=== PATIENT | male | born 1960 | race African-American/Black ===

== ENCOUNTER 2018-06-13 22:45 | Emergency (ER) | payer OTHER, MEDICARE ==
[2018-06-13] MEDS: KETOROLAC 60 MG/2 ML INJ. IM (23:57)
[2018-06-13] MEDS: ORPHENADRINE CITRATE 60 MG/2 ML VIAL. IM (23:58)
[2018-06-14] MEDS: PROMETHAZINE IM 25 MG/ML VIAL IM (01:03)
[2018-06-14] MEDS: oxyCODONE/APAP 7.5/325 1 TAB TABLET PO (02:16)
[2018-06-14 03:09] LABS: BILIRUBIN,URINE NEGATIVE (NEG); CLARITY,URINE CLEAR; COLOR,URINE YELLOW; GLUCOSE,URINE 500 mg/dL (NEG); NITRITE,URINE NEGATIVE (NEG); PH,URINE 5.5; PROTEIN,URINE 30 mg/dL (NEG-TRACE); UROBILINOGEN,URINE 0.2 mg/dL (0.2 mg/dL)
[2018-06-14 03:24] LABS: BACTERIA,URINE FEW /HPF (0-FEW); RBC,URINE TNTC /HPF (0-2); SQUAMOUS EPITHELIAL CELL,UR FEW /LPF
== END 2018-06-14 04:08 | disposition home or self-care (01) ==
LOC: ER 22:45
DX: N20.1 Calculus of ureter (principal); Z93.3 Colostomy status; Z90.5 Acquired absence of kidney
CPT/HCPCS: 74176; 81001; 96372; 99285-25; J1885; J2360; J2550

== ENCOUNTER 2018-08-20 03:12 | Inpatient (IN) | payer OTHER ==
[~2018-08-20] VITALS: Ht 180.3 cm; Wt 80.7 kg
[~2018-08-20 03:12] MED LIST: ONDA4TAB7 PO; OXYC-323 PO; TAMS0.4C97 PO
--- NOTE | 2018-08-20 03:55 | PHYS DOC ---
Past Medical History Past Medical History: No Pertinent History Past Surgical History: Other Additional Past Surgical Histo: COLOSTOMY, KIDNEY REMOVAL Alcohol Use: None Drug Use: None Adult General Chief Complaint Chief Complaint: NAUSEA/VOMITING/DIARRHA HPI HPI Patient is a 58 year old male who presents with nausea and vomiting. Patient states he had onset of nausea with vomiting 2 days earlier. He is uncertain why. He relates that he has been unable to hold down any food or fluids over the last 24 hours. He does not have abdominal pain. The patient does not drink alcohol. He does state he had one prior episode of similar symptoms a couple months earlier for which she was evaluated but no acute diagnosis was made at that time. Denies diarrhea. He currently complains only of nausea and excessive thirst. Review of Systems Review of Systems Constitutional: Denies fever or chills Eyes: Denies HENT: Denies Respiratory: Denies cough Cardiovascular: No additional information GI: Denies abdominal pain : Denies dysuria Musculoskeletal: Denies back pain Integument: Denies rash or skin lesions Neurologic: Denies headache Endocrine: Denies polyuria or polydipsia All other systems were reviewed and found to be within normal limits, except as documented in this note. Current Medications Current Medications Current Medications Medications (Trade) Dose Ordered Sig/Lokesh Start Time Stop Time Status Last Admin Dose Admin Diphenhydramine HCl (Benadryl) 12.5 mg 1X ONCE 08/20/18 04:30 08/20/18 04:31 DC 08/20/18 04:19 12.5 MG Prochlorperazine Edisylate (Compazine) 10 mg 1X ONCE 08/20/18 04:30 08/20/18 04:31 DC 08/20/18 04:18 10 MG Sodium Chloride 1,000 ml @ 1,000 mls/hr 1X ONCE 08/20/18 06:30 08/20/18 07:29 DC 08/20/18 06:08 1,000 MLS/HR Allergies Allergies Allergies Coded Allergies Type Severity Reaction Last Updated Verified No Known Drug Allergies 06/13/18 No Physical Exam Physical Exam Constitutional: Well developed, well nourished, no acute distress, non-toxic appearance HENT: Normocephalic, atraumatic, bilateral external ears normal, oropharynx dry Eyes: PERRLA, EOMI, conjunctiva normal Neck: Normal range of motion, no tenderness Cardiovascular:Heart rate regular rhythm, no murmur Lungs & Thorax: Bilateral breath sounds clear to auscultation Abdomen: Bowel sounds normal, soft, no tenderness, well-appearing colostomy left lower quad. Skin: Warm, dry, no erythema Extremities: No edema Neurologic: Alert and oriented X 3 Psychologic: Affect normal Current Patient Data Vital Signs Vital Signs Date Time Temp Pulse Resp B/P (MAP) Pulse Ox O2 Delivery O2 Flow Rate FiO2 08/20/18 06:18 82 132/62 (85) Room Air 08/20/18 05:18 99 08/20/18 03:40 98.2 18 98.2 Lab Values Laboratory Tests Test 08/20/18 04:40 08/20/18 07:14 White Blood Count 9.6 x10^3/uL (4.0-11.0) Red Blood Count 4.50 x10^6/uL (4.30-5.70) Hemoglobin 13.5 g/dL (13.0-17.5) Hematocrit 39.8 % (39.0-53.0) Mean Corpuscular Volume 89 fL (79-100) Mean Corpuscular Hemoglobin 30 pg (25-35) Mean Corpuscular Hemoglobin Concent 34 g/dL (31-37) Red Cell Distribution Width 13.3 % (11.5-14.5) Platelet Count 329 x10^3/uL (140-400) Neutrophils (%) (Auto) 71 % (31-73) Lymphocytes (%) (Auto) 21 % (24-48) L Monocytes (%) (Auto) 6 % (0-9) Eosinophils (%) (Auto) 1 % (0-3) Basophils (%) (Auto) 1 % (0-3) Neutrophils # (Auto) 6.8 x10^3uL (1.8-7.7) Lymphocytes # (Auto) 2.0 x10^3/uL (1.0-4.8) Monocytes # (Auto) 0.6 x10^3/uL (0.0-1.1) Eosinophils # (Auto) 0.1 x10^3/uL (0.0-0.7) Basophils # (Auto) 0.1 x10^3/uL (0.0-0.2) Sodium Level 142 mmol/L (136-145) Potassium Level 3.5 mmol/L (3.5-5.1) Chloride Level 107 mmol/L (98-107) Carbon Dioxide Level 24 mmol/L (21-32) Anion Gap 11 (6-14) Blood Urea Nitrogen 16 mg/dL (8-26) Creatinine 1.9 mg/dL (0.7-1.3) H Estimated GFR (Cockcroft-Gault) 44.6 Glucose Level 272 mg/dL (70-99) H Calcium Level 9.2 mg/dL (8.5-10.1) Total Bilirubin 0.3 mg/dL (0.2-1.0) Direct Bilirubin 0.1 mg/dL (0.0-0.2) Aspartate Amino Transferase (AST) 9 U/L (15-37) L Alanine Aminotransferase (ALT) 11 U/L (16-63) L Alkaline Phosphatase 89 U/L (46-116) Creatine Kinase 87 U/L (39-308) Troponin I Quantitative < 0.017 ng/mL (0.000-0.055) Total Protein 7.2 g/dL (6.4-8.2) Albumin 3.3 g/dL (3.4-5.0) L Lipase 99 U/L (73-393) Urine Collection Type Void Urine Color Yellow Urine Clarity Clear Urine pH 5.0 Urine Specific [place] 1.025 Urine Protein 100 mg/dL (NEG-TRACE) Urine Glucose (UA) 100 mg/dL (NEG) Urine Ketones (Stick) Trace mg/dL (NEG) Urine Blood Negative (NEG) Urine Nitrite Negative (NEG) Urine Bilirubin Negative (NEG) Urine Urobilinogen Dipstick 0.2 mg/dL (0.2 mg/dL) Urine Leukocyte Esterase Trace (NEG) Urine RBC Occ /HPF (0-2) Urine WBC 5-10 /HPF (0-4) Urine Bacteria Few /HPF (0-FEW) Urine Hyaline Casts Moderate /HPF Laboratory Tests 08/20/18 04:40 Laboratory Tests 08/20/18 04:40 EKG EKG [] Radiology/Procedures Radiology/Procedures [] Course & Med Decision Making Course & Med Decision Making Pertinent Labs and Imaging studies reviewed. (See chart for details) 03:50: Patient is seen and examined. No abdominal pain and normal abdominal examination. IVF's and compazine / benadryl ordered for symptom relief. 06:00: Patient currently attempting PO. Plan is to give 3 liters total NS and control nausea symptoms. After that, recheck iStat BMP. If Cr is normal or improving, patient can be discharged home. Patient is currently feeling improved. Transfer care to Dr. Alegria. Boyd Disclaimer Boyd Disclaimer This electronic medical record was generated, in whole or in part, using a voice recognition dictation system. Departure Departure Impression: Primary Impression: Nausea and vomiting Additional Impressions: Acute kidney injury Diabetes mellitus, new onset Disposition: ADMITTED INPATIENT Admitting Physician: Xie. Boggs Condition: STABLE Referrals: NO PCP (PCP) Assessment/Plan Assessment/Plan This is a pleasant 58-year-old male presenting to the emergency department with nausea and vomiting who was seen by previous physician Dr. Adams. Sign out at [address] the abdomen pelvis ordered and obtained which shows possible pyelonephritis. Urinalysis is equivocal. We will cover for UTI with IV Rocephin. Also of note the patient's glucose is 272 without a history of diabetes. New-onset diabetes. Also the patient has a history of nephrectomy has acute kidney injury. We'll admit the patient for nephrology consultation treatment of his nausea and vomiting further evaluation and care. I spoke with Dr. Pitt who accepts patient for admission. Basic bridge orders placed. Problem Qualifiers MARILYN ADAMS DO Aug 20, 2018 03:55 GEORGETTE ALEGRIA MD Aug 20, 2018 07:53
[2018-08-20] MEDS ORDERED: PROCHLORPERAZINE 10 MG/2 ML VIAL. IV ONE (04:30)
[2018-08-20] MEDS ORDERED: IV NORMAL SALINE 1000ML BAG 1,000 ML IV ONE ×3 (04:30→06:30)
[2018-08-20] MEDS ORDERED: diphenhydrAMINE 50 MG/ML VIAL IVP ONE (04:30)
[2018-08-20 04:49] LABS: BASO # 0.1 x10^3/uL (0.0-0.2); BASO % 1 % (0-3); EOS # 0.1 x10^3/uL (0.0-0.7); EOS % 1 % (0-3); HEMATOCRIT 39.8 % (39.0-53.0); HEMOGLOBIN 13.5 g/dL (13.0-17.5); LYMPH % 21 % (24-48); MEAN CORPUSCULAR HEMOGLOBIN 30 pg (25-35); MEAN CORPUSCULAR HGB CONC 34 g/dL (31-37); MEAN CORPUSCULAR VOLUME 89 fL (79-100); MONO # 0.6 x10^3/uL (0.0-1.1); MONO % 6 % (0-9); NEUT # 6.8 x10^3uL (1.8-7.7); NEUT % 71 % (31-73); PLATELET COUNT 329 x10^3/uL (140-400); RED CELL DISTRIBUTION WIDTH 13.3 % (11.5-14.5); WHITE BLOOD COUNT 9.6 x10^3/uL (4.0-11.0)
[2018-08-20 04:57] LABS: CALCIUM 9.2 mg/dL (8.5-10.1); CREATININE 1.9 mg/dL (0.7-1.3); GFR 44.6; POTASSIUM 3.5 mmol/L (3.5-5.1)
[2018-08-20 05:03] LABS: ALBUMIN 3.3 g/dL (3.4-5.0); DIRECT BILIRUBIN 0.1 mg/dL (0.0-0.2); TOTAL BILIRUBIN 0.3 mg/dL (0.2-1.0); TOTAL PROTEIN 7.2 g/dL (6.4-8.2)
--- NOTE | 2018-08-20 07:05 | RAD ---
Examination: CT of the abdomen pelvis without contrast HISTORY: History of nausea, vomiting, abdominal pain COMPARISON: 06/13/2018 Exposure: One or more of the following individualized dose reduction techniques were utilized for this examination: 1. Automated exposure control 2. Adjustment of the mA and/or kV according to patient size 3. Use of iterative reconstruction technique FINDINGS: The visualized bibasilar lungs are clear. No evidence of free air identified in the abdomen. The evaluation of the solid organs is limited due to lack of IV contrast. The evaluation of bowel is limited lack of oral contrast. The visualized noncontrasted liver, spleen, right adrenal grossly appears unremarkable. There is nodular identified in the left adrenal gland measuring 2 cm and measures 3 Hounsfield units similar to prior exam. The small bowel is nondilated. Left lower quadrant colostomy changes identified. Surgical changes of fall left nephrectomy. There is mild fat stranding identified about the right kidney with minimal right-sided hydronephrosis and hydroureter. No evidence of obvious ureteral calculus identified. Mild changes lumbar spine. Impression: Mild fat stranding identified about the right kidney with mild right-sided hydronephrosis. Pyelonephritis is a consideration. Correlate with urine analysis. Electronically signed by: Keagan Lazo MD (08/20/2018 7:01 AM) [id number]
[2018-08-20 07:22] LABS: BILIRUBIN,URINE NEGATIVE (NEG); CLARITY,URINE CLEAR; COLOR,URINE YELLOW; NITRITE,URINE NEGATIVE (NEG); PROTEIN,URINE 100 mg/dL (NEG-TRACE); UROBILINOGEN,URINE 0.2 mg/dL (0.2 mg/dL)
[2018-08-20 07:41] LABS: BACTERIA,URINE FEW /HPF (0-FEW); HYALINE CASTS, URINE MODERATE /HPF
[2018-08-20 07:42] LABS: RBC,URINE OCC /HPF (0-2)
[2018-08-20] MEDS ORDERED: MORPHINE SULFATE 2 MG/ML VIAL. IV PRN ×2 (07:45→12:30)
[2018-08-20] MEDS: IV NORMAL SALINE 1000ML BAG 1,000 ML IV SCH ×3 (08:03→20:43)
[2018-08-20 09:00] VITALS: BP 133/75
[2018-08-20 11:00] VITALS: BP 121/74
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
[2018-08-20] MEDS ORDERED: INFLUENZA VAX SCREEN BY RX. MC ONE (11:45)
[2018-08-20] MEDS ORDERED: ATOR40TA59 PO (11:47)
[2018-08-20] MEDS ORDERED: RANI150T2 PO (11:47)
[2018-08-20] MEDS ORDERED: LISI-338 PO (11:47)
[2018-08-20] MEDS ORDERED: INSU100I13 SQ (11:47)
[2018-08-20] MEDS ORDERED: ONDANSETRON PF 4 MG/2 ML VIAL. IV PRN (12:30)
[2018-08-20] MEDS ORDERED: ACETAMINOPHEN 325 MG TABLET. PO PRN (12:30)
[2018-08-20] MEDS ORDERED: traMADol 50 MG TABLET PO PRN (12:30)
[2018-08-20] MEDS ORDERED: DOCUSATE SODIUM 100 MG CAPSULE. PO PRN (12:30)
[2018-08-20] MEDS ORDERED: DEXTROSE 50% 25 GM / 50ML DISP.SYRIN. IV PRN (12:30)
[2018-08-20] MEDS: ENOXAPARIN 40 MG/0.4 ML SYRINGE. SQ SCH (13:00)
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
--- NOTE | 2018-08-20 14:13 | RAD ---
Renal ultrasound History: Acute kidney injury Comparison: CT exam August 20, 2018 Findings: Multiple sonographic images of the right kidney and urinary bladder submitted. There has been left nephrectomy. Right kidney measured 13.2 x 5.8 x 5.7 cm, no significant hydronephrosis demonstrated on this exam. Urinary bladder morphology is within normal limits. Sonographic images of the left renal fossa are submitted, no mass demonstrated. Impression: 1. There has been left nephrectomy. There is no significant right hydronephrosis demonstrated on this exam. Electronically signed by: Jer Li MD (08/20/2018 2:10 PM) [id number]
[2018-08-20 15:00] VITALS: BP 140/83
[2018-08-20] MEDS: PANTOPRAZOLE 40 MG TABLET.DR. PO SCH (17:13)
[2018-08-20] MEDS: INSULIN LISPRO 300 UNITS/3 ML INSULN.PEN. SQ SCH ×2 (17:15→17:16)
[2018-08-20 19:00] VITALS: BP 123/73
[2018-08-20] MEDS: ONDANSETRON PF 4 MG/2 ML VIAL. IV PRN (21:03)
[2018-08-20] MEDS: INSULIN GLARGINE 300 UNITS/3 ML INSULN.PEN. SQ SCH (21:08)
[2018-08-20 23:00] VITALS: BP 116/57
[2018-08-21 03:00] VITALS: BP 126/70
[2018-08-21 03:16] LABS: HEMOGLOBIN A1C 9.7 % (4.8-5.6)
[2018-08-21 04:22] LABS: BASO # 0.1 x10^3/uL (0.0-0.2); BASO % 1 % (0-3); EOS # 0.2 x10^3/uL (0.0-0.7); EOS % 3 % (0-3); HEMATOCRIT 36.3 % (39.0-53.0); HEMOGLOBIN 12.1 g/dL (13.0-17.5); LYMPH # 2.9 x10^3/uL (1.0-4.8); LYMPH % 38 % (24-48); MEAN CORPUSCULAR HEMOGLOBIN 30 pg (25-35); MEAN CORPUSCULAR HGB CONC 33 g/dL (31-37); MEAN CORPUSCULAR VOLUME 89 fL (79-100); MONO # 0.7 x10^3/uL (0.0-1.1); MONO % 9 % (0-9); NEUT # 3.7 x10^3uL (1.8-7.7); NEUT % 49 % (31-73); PLATELET COUNT 306 x10^3/uL (140-400); RED BLOOD COUNT 4.08 x10^6/uL (4.30-5.70); RED CELL DISTRIBUTION WIDTH 13.3 % (11.5-14.5); WHITE BLOOD COUNT 7.6 x10^3/uL (4.0-11.0)
[2018-08-21 04:57] LABS: CALCIUM 7.8 mg/dL (8.5-10.1); CREATININE 1.7 mg/dL (0.7-1.3); GFR 50.7; POTASSIUM 3.7 mmol/L (3.5-5.1)
[2018-08-21] MEDS: ONDANSETRON PF 4 MG/2 ML VIAL. IV PRN (05:38)
[2018-08-21] MEDS: PANTOPRAZOLE 40 MG TABLET.DR. PO SCH (07:30)
[2018-08-21] MEDS: INSULIN LISPRO 300 UNITS/3 ML INSULN.PEN. SQ SCH ×6 (08:00→17:00)
[2018-08-21] MEDS: cefTRIAXone IV Push 1 GM VIAL. IVP SCH (09:00)
[2018-08-21 11:00] VITALS: BP 149/88
--- NOTE | 2018-08-21 11:09 | PDOC ---
Renal-Progress Notes Subjective Notes Notes NO NEW COMPLAINTS History of Present Illness Hx of present illness STABLE Vitals Vitals Vital Signs Date Time Temp Pulse Resp B/P (MAP) Pulse Ox O2 Delivery O2 Flow Rate FiO2 08/21/18 08:00 Room Air 08/21/18 03:00 98.4 73 18 126/70 (88) 97 98.4 Weight Weight [ ] I.O. Intake and Output Intake and Output 08/21/18 07:00 Intake Total 2500 ml Balance 2500 ml Intake Oral 500 ml IV Total 2000 ml # Voids 6 # Bowel Movements 7 Labs Labs Laboratory Tests Test 08/20/18 11:08 08/20/18 16:53 08/20/18 21:04 08/21/18 03:45 Glucose (Fingerstick) 276 mg/dL (70-99) 275 mg/dL (70-99) 152 mg/dL (70-99) White Blood Count 7.6 x10^3/uL (4.0-11.0) Red Blood Count 4.08 x10^6/uL (4.30-5.70) Hemoglobin 12.1 g/dL (13.0-17.5) Hematocrit 36.3 % (39.0-53.0) Mean Corpuscular Volume 89 fL (79-100) Mean Corpuscular Hemoglobin 30 pg (25-35) Mean Corpuscular Hemoglobin Concent 33 g/dL (31-37) Red Cell Distribution Width 13.3 % (11.5-14.5) Platelet Count 306 x10^3/uL (140-400) Neutrophils (%) (Auto) 49 % (31-73) Lymphocytes (%) (Auto) 38 % (24-48) Monocytes (%) (Auto) 9 % (0-9) Eosinophils (%) (Auto) 3 % (0-3) Basophils (%) (Auto) 1 % (0-3) Neutrophils # (Auto) 3.7 x10^3uL (1.8-7.7) Lymphocytes # (Auto) 2.9 x10^3/uL (1.0-4.8) Monocytes # (Auto) 0.7 x10^3/uL (0.0-1.1) Eosinophils # (Auto) 0.2 x10^3/uL (0.0-0.7) Basophils # (Auto) 0.1 x10^3/uL (0.0-0.2) Sodium Level 143 mmol/L (136-145) Potassium Level 3.7 mmol/L (3.5-5.1) Chloride Level 110 mmol/L (98-107) Carbon Dioxide Level 25 mmol/L (21-32) Anion Gap 8 (6-14) Blood Urea Nitrogen 13 mg/dL (8-26) Creatinine 1.7 mg/dL (0.7-1.3) Estimated GFR (Cockcroft-Gault) 50.7 Glucose Level 254 mg/dL (70-99) Calcium Level 7.8 mg/dL (8.5-10.1) Test 08/21/18 08:48 Glucose (Fingerstick) 196 mg/dL (70-99) Review of Systems Constitutional: yes: alert, oriented Ears/Nose/Throat: Yes: no symptom reported Eyes: Yes: no symptom reported Pulmonary: Yes no symptom reported Gastrointestional: Yes: nausea, vomiting Genitourinary: Yes: no symptom reported Musculoskeletal: Yes: no symptom reported Skin: Yes no symptom reported Psychiatric/Neurological: Yes: no symptom reported Endocrine: Yes: no symptom reported Physical Exam General Appearance: no apparent distress Skin: warm Respiratory: bilateral CTA Heart: S1S2 Abdomen: soft, bowel sounds present Genitourinary: bladder flat Extremities: pulses present Neurology: alert Musculoskeletal: Osteoarthritis, Weakness Assessment Assessment IMP DEHYDRATION VICKEY-CR BETTER AT 1.7 HX OF LEFT NEPHRECTOMY GLUCOSE INTOLERANCE HTN HX PROB GASTROENTERITIS PLAN CONT WITH IVF'S UA NEG FOR NEPHRITIS WILL FOLLOW MANA BARRAZA MD Aug 21, 2018 11:09
--- NOTE | 2018-08-21 11:45 | RAD ---
Radionuclide gastric emptying study, incomplete exam, 08/21/2018: The patient ingested the solid test meal radiolabeled with 2.1 mCi of technetium 99m sulfur colloid. He subsequently vomited before the 1 hour image was obtained. Electronically signed by: Jordan Barboza MD (08/21/2018 11:42 AM) [facility]
[2018-08-21] MEDS: PROCHLORPERAZINE 10 MG/2 ML VIAL. IV PRN (11:58)
[2018-08-21] MEDS ORDERED: ONDANSETRON PF 4 MG/2 ML VIAL. IV PRN (12:00)
[2018-08-21] MEDS: IV NORMAL SALINE 1000ML BAG 1,000 ML IV SCH ×2 (12:05→21:21)
[2018-08-21] MEDS: ENOXAPARIN 40 MG/0.4 ML SYRINGE. SQ SCH (13:00)
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
[2018-08-21 15:21] VITALS: BP 109/69
[2018-08-21 19:00] VITALS: BP 135/75
[2018-08-21] MEDS: INSULIN GLARGINE 300 UNITS/3 ML INSULN.PEN. SQ SCH (20:43)
[2018-08-21] MEDS ORDERED: INSULIN GLARGINE 300 UNITS/3 ML INSULN.PEN. SQ ONE (20:45)
[2018-08-21] MEDS: LACTOBACILLUS RHAMNOSUS GG 1 CAPSULE. PO SCH (21:02)
[2018-08-21 22:35] VITALS: BP 140/88
[2018-08-22 03:05] VITALS: BP 123/68
[2018-08-22 05:51] LABS: CALCIUM 8.1 mg/dL (8.5-10.1); CREATININE 1.6 mg/dL (0.7-1.3); GFR 54.4; POTASSIUM 3.4 mmol/L (3.5-5.1)
[2018-08-22 07:00] VITALS: BP 137/89
[2018-08-22] MEDS: PANTOPRAZOLE 40 MG TABLET.DR. PO SCH (07:30)
[2018-08-22] MEDS: INSULIN LISPRO 300 UNITS/3 ML INSULN.PEN. SQ SCH ×4 (07:30→11:51)
[2018-08-22] MEDS: PROCHLORPERAZINE 10 MG/2 ML VIAL. IV PRN (08:24)
[2018-08-22] MEDS: IV NORMAL SALINE 1000ML BAG 1,000 ML IV SCH (08:24)
[2018-08-22] MEDS: LACTOBACILLUS RHAMNOSUS GG 1 CAPSULE. PO SCH (09:00)
[2018-08-22] MEDS: cefTRIAXone IV Push 1 GM VIAL. IVP SCH (10:38)
[2018-08-22 11:00] VITALS: BP 148/86
[2018-08-22] MEDS: ENOXAPARIN 40 MG/0.4 ML SYRINGE. SQ SCH (13:00)
--- NOTE | 2018-08-22 14:07 | RAD ---
EXAM: Nuclear gastric emptying scan. HISTORY: Nausea and vomiting. COMPARISON: None. TECHNIQUE: Serial static images were obtained over the stomach following oral administration of 2.0 mCi of 99m-Tc sulfur colloid. FINDINGS: The stomach empties into the small bowel without evidence of reflux in the area of the esophagus. The estimated time for half emptying of gastric contents, i.e. 'gastric emptying time' is 256 minutes (normal is 66 +/- 22 minutes). There is 93% retained tracer activity within the stomach at one hour, 75% retained tracer activity within the stomach at 2 hours, 50% retained tracer activity within the stomach at 3 hours, and 40% retained tracer activity within the stomach at 4 hours. IMPRESSION: Significantly delayed gastric emptying with an estimated half-time of 256 minutes. Correlate for gastroparesis. Electronically signed by: Shaneka Perez MD (08/22/2018 2:04 PM) [email or web address]
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
--- NOTE | 2018-08-22 14:49 | PDOC ---
Renal-Progress Notes Subjective Notes Notes NO MORE N/V History of Present Illness Hx of present illness STABLE Vitals Vitals Vital Signs Date Time Temp Pulse Resp B/P (MAP) Pulse Ox O2 Delivery O2 Flow Rate FiO2 08/22/18 11:00 98.0 76 20 148/86 (106) 98 Room Air 98.0 Weight Weight [ ] I.O. Intake and Output Intake and Output 08/22/18 07:00 Intake Total 2420 ml Balance 2420 ml Intake Oral 1420 ml IV Total 1000 ml # Voids 6 # Bowel Movements 1 Labs Labs Laboratory Tests Test 08/21/18 14:56 08/21/18 15:08 08/21/18 20:45 08/22/18 04:35 Glucose (Fingerstick) 41 mg/dL (70-99) 86 mg/dL (70-99) 307 mg/dL (70-99) Sodium Level 142 mmol/L (136-145) Potassium Level 3.4 mmol/L (3.5-5.1) Chloride Level 108 mmol/L (98-107) Carbon Dioxide Level 24 mmol/L (21-32) Anion Gap 10 (6-14) Blood Urea Nitrogen 10 mg/dL (8-26) Creatinine 1.6 mg/dL (0.7-1.3) Estimated GFR (Cockcroft-Gault) 54.4 Glucose Level 108 mg/dL (70-99) Calcium Level 8.1 mg/dL (8.5-10.1) Test 08/22/18 07:35 08/22/18 11:25 Glucose (Fingerstick) 93 mg/dL (70-99) 161 mg/dL (70-99) Review of Systems Constitutional: yes: alert, oriented Ears/Nose/Throat: Yes: no symptom reported Eyes: Yes: no symptom reported Pulmonary: Yes no symptom reported Gastrointestional: Yes: nausea, vomiting Genitourinary: Yes: no symptom reported Musculoskeletal: Yes: no symptom reported Skin: Yes no symptom reported Psychiatric/Neurological: Yes: no symptom reported Endocrine: Yes: no symptom reported Physical Exam General Appearance: no apparent distress Skin: warm Respiratory: bilateral CTA Heart: S1S2 Abdomen: soft, bowel sounds present Genitourinary: bladder flat Extremities: pulses present Neurology: alert Musculoskeletal: Osteoarthritis, Weakness Assessment Assessment IMP DEHYDRATION VICKEY-CR BETTER AT 1.6 HX OF LEFT NEPHRECTOMY GLUCOSE INTOLERANCE/DM II HTN HX PLAN CONT WITH IVF'S UA NEG FOR NEPHRITIS GI EVAL AND TX WILL FOLLOW MANA BARRAZA MD Aug 22, 2018 14:49
[2018-08-22 15:00] VITALS: BP 131/77
[2018-08-22] MEDS ORDERED: CIPR500T94 PO (16:47)
[2018-08-22] MEDS ORDERED: PROC10TA57 PO (16:48)
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
== END 2018-08-22 18:41 | disposition home or self-care (01) | DRG 637 ==
LOC: ER 03:12 → 5 SOUTH 07:42
PROVIDERS: ADMIT Internal Medicine; ATTEND Internal Medicine
DX: E11.65 Type 2 diabetes mellitus with hyperglycemia (principal); N17.0 Acute kidney failure with tubular necrosis; N39.0 Urinary tract infection, site not specified; A08.4 Viral intestinal infection, unspecified; M19.90 Unspecified osteoarthritis, unspecified site; E11.43 Type 2 diabetes mellitus with diabetic autonomic (poly)neuropathy; K31.84 Gastroparesis; F17.210 Nicotine dependence, cigarettes, uncomplicated; E86.0 Dehydration; K29.00 Acute gastritis without bleeding; R12 Heartburn; I10 Essential (primary) hypertension; N40.0 Benign prostatic hyperplasia without lower urinary tract symptoms; Z79.4 Long term (current) use of insulin; Z90.5 Acquired absence of kidney; Z80.0 Family history of malignant neoplasm of digestive organs; Z82.49 Family history of ischemic heart disease and other diseases of the circulatory system; Z90.49 Acquired absence of other specified parts of digestive tract; Z93.3 Colostomy status
CPT/HCPCS: 36415; 74176; 76770; 78264; 80048; 80076; 81001; 82550; 82962; 83036; 83690; 84484; 85025; A9541; J0690; J0696; J0780; J1200; J1815; J2405; J7030

== ENCOUNTER 2020-02-07 20:36 | Emergency (ER) | payer OTHER, MEDICAID ==
[~2020-02-07] VITALS: Ht 180.3 cm; Wt 80.0 kg
[~2020-02-07 20:36] MED LIST changes: +ATOR40TA59 PO; +CIPR500T94 PO; +INSU100I11 SQ; +INSU100I13 SQ; +LISI-338 PO; -OXYC-323 PO; +OXYC1TAB15 PO; +PROC10TA57 PO; +RANI150T2 PO
[2020-02-07 21:09] VITALS: BP 126/71
[2020-02-07] MEDS ORDERED: ONDANSETRON ODT 4 MG TAB.RAPDIS. PO ONE (21:30)
--- NOTE | 2020-02-07 21:48 | RAD ---
CHEST PA LATERAL History: Fall, chest wall pain Comparison: None. Findings: 2 views of the chest are submitted. There is no infiltrate, pneumothorax, or effusion. Pericardial cardiac silhouette is within normal limits in size. There are some clips of the visualized left abdomen. Impression: 1. There is no radiographic evidence of acute cardiopulmonary disease. Electronically signed by: Jer Li MD (02/07/2020 9:45 PM) [id number]
--- NOTE | 2020-02-07 22:06 | RAD ---
Exam: CT head INDICATION: Fall, headache TECHNIQUE: Sequential axial images through the head were obtained without the administration of IV contrast. Comparisons: None FINDINGS: No focal parenchymal lesion or hemorrhage is identified. There is no midline shift or sulcal effacement. No acute vascular territory infarction is identified. Powers-white distinction is preserved. The ventricular system is within normal limits without compression hydrocephalus. The basal cisterns are well maintained. The visualized portions of the paranasal sinuses and mastoid air cells are well-pneumatized. No acute fractures. IMPRESSION: No acute intracranial abnormality. Exposure: One or more of the following in the visualized dose reduction techniques were utilized for this examination: 1. Automated exposure control 2. Adjustment of the MA and/or KV according to patient size Use of iterative of reconstructive technique Electronically signed by: Germania Degroot MD (02/07/2020 10:03 PM) [id number]
[2020-02-07] MEDS ORDERED: ONDA4TAB12 PO (23:09)
--- NOTE | 2020-02-07 23:10 | PHYS DOC ---
Past Medical History Past Medical History: Diabetes-Type II, Stroke Past Surgical History: Other Additional Past Surgical Histo: COLOSTOMY, KIDNEY REMOVAL Smoking Status: Former Smoker Alcohol Use: None Drug Use: None Adult General Chief Complaint Chief Complaint: MULTIPLE COMPLAINTS HPI HPI Patient is a 59 year old male who presents to the ED today complaining of left forehead pain as well as left anterior chest wall pain rated as mild and intermittent. Patient reports going down some steps when he missed the last step and fell face forward. Denies any loss of consciousness. He reports vomiting post falling. Denies any neck pain, denies any mid or low back pain. Denies anything specifically exacerbating or relieving his pain. Review of Systems Review of Systems Constitutional: Denies fever or chills [] Eyes: Denies change in visual acuity, redness, or eye pain [] HENT: Denies nasal congestion or sore throat [] Respiratory: Denies cough or shortness of breath [] Cardiovascular: Reports anterior chest wall pain on the left GI: Reports vomiting post for him. Denies abdominal pain, bloody stools or diarrhea [] : Denies dysuria or hematuria [] Musculoskeletal: Denies back pain or joint pain [] Integument: Denies rash or skin lesions [] Neurologic: Reports left denies focal weakness or sensory changes [] All other systems were reviewed and found to be within normal limits, except as documented in this note. Current Medications Current Medications Current Medications Medications (Trade) Dose Ordered Sig/Lokesh Start Time Stop Time Status Last Admin Dose Admin Ondansetron HCl (Zofran Odt) 4 mg 1X ONCE 02/07/20 21:30 02/07/20 21:32 DC 02/07/20 21:30 4 MG Allergies Allergies Allergies Coded Allergies Type Severity Reaction Last Updated Verified No Known Drug Allergies 06/13/18 No Physical Exam Physical Exam Constitutional: Well developed, well nourished, no acute distress, non-toxic appearance. [] HENT: Normocephalic, atraumatic, bilateral external ears normal, oropharynx moist, no oral exudates, nose normal. [] Eyes: PERRLA, EOMI, conjunctiva normal, no discharge. [] Neck: Normal range of motion, no tenderness, supple, no stridor. [] Cardiovascular:Heart rate regular rhythm, no murmur [] Lungs & Thorax: Bilateral breath sounds clear to auscultation [] Abdomen: Bowel sounds normal, soft, no tenderness, no masses, no pulsatile masses. [] Skin: Warm, dry, no erythema, no rash. [] Back: No tenderness, no CVA tenderness. [] Extremities: No tenderness, no cyanosis, no clubbing, ROM intact, no edema. [] Neurologic: Alert and oriented X 3, normal motor function, normal sensory function, no focal deficits noted. Cranial nerves II through XII intact Psychologic: Affect normal, judgement normal, mood normal. [] Current Patient Data Vital Signs Vital Signs Date Time Temp Pulse Resp B/P (MAP) Pulse Ox O2 Delivery O2 Flow Rate FiO2 02/07/20 21:09 97.6 94 16 126/71 (89) 97 Room Air 97.6 Lab Values Laboratory Tests Test 02/07/20 22:46 Glucose (Fingerstick) 162 mg/dL (70-99) H EKG EKG [] Radiology/Procedures Radiology/Procedures []PROCEDURE: CHEST PA & LATERAL CHEST PA LATERAL History: Fall, chest wall pain Comparison: None. Findings: 2 views of the chest are submitted. There is no infiltrate, pneumothorax, or effusion. Pericardial cardiac silhouette is within normal limits in size. There are some clips of the visualized left abdomen. Impression: 1. There is no radiographic evidence of acute cardiopulmonary disease. Electronically signed by: Padmaja Urbina MD (02/07/2020 9:45 PM) [id number] DICTATED and SIGNED BY: PADMAJA URBINA MD DATE: 02/07/20 2145 PROCEDURE: CT HEAD WO CONTRAST Exam: CT head INDICATION: Fall, headache TECHNIQUE: Sequential axial images through the head were obtained without the administration of IV contrast. Comparisons: None FINDINGS: No focal parenchymal lesion or hemorrhage is identified. There is no midline shift or sulcal effacement. No acute vascular territory infarction is identified. Powers-white distinction is preserved. The ventricular system is within normal limits without compression hydrocephalus. The basal cisterns are well maintained. The visualized portions of the paranasal sinuses and mastoid air cells are well-pneumatized. No acute fractures. IMPRESSION: No acute intracranial abnormality. Exposure: One or more of the following in the visualized dose reduction techniques were utilized for this examination: 1. Automated exposure control 2. Adjustment of the MA and/or KV according to patient size Use of iterative of reconstructive technique Electronically signed by: Germania Carty MD (02/07/2020 10:03 PM) [id number] DICTATED and SIGNED BY: GERMANIA CARTY MD DATE: 02/07/202202 Course & Med Decision Making Course & Med Decision Making Pertinent Labs and Imaging studies reviewed. (See chart for details) This is a 59-year-old male patient presenting to the ED today with left forehead pain and left anterior chest wall pain status post falling. CT of the head is negative for any acute findings, chest x-ray is negative. Discharge to home. Ice elevation encouraged. Given Zofran for vomiting. Follow-up with primary care doctor in 1 week. Head injury and concussion precautions provided. Dragon Disclaimer Dragon Disclaimer This electronic medical record was generated, in whole or in part, using a voice recognition dictation system. Departure Departure Impression: Primary Impression: Fall down steps Additional Impressions: Closed head injury Concussion Chest wall contusion Disposition: HOME, SELF-CARE Condition: STABLE Referrals: UNKNOWN PCP NAME (PCP) Follow-up with your doctor in 1 week Patient Instructions: Concussion and Brain Injury, [id number], Contusion, [id number] Additional Instructions: You were evaluated in the emergency room after falling, your CT of the head and chest x-ray are negative. Follow-up with your doctor in 1 to 2 weeks. Please return to the ED at any point you have confusion, uncontrolled pain, uncontrolled nausea or vomiting, excessive sleepiness. Follow-up with your doctor in 1 week. Scripts Ondansetron (ONDANSETRON ODT) 4 Mg Tab.rapdis 1 TAB PO PRN Q6-8HRS, #16 TAB Prov: GERALDO INMAN [employer] 02/07/20 Problem Qualifiers Primary Impression: Fall down steps Encounter type: initial encounter Qualified Codes: W10.8XXA - Fall (on) (from) other stairs and steps, initial encounter Additional Impressions: Closed head injury Encounter type: initial encounter Qualified Codes: S09.90XA - Unspecified injury of head, initial encounter Concussion Encounter type: initial encounter Loss of consciousness presence/duration: without LOC Qualified Codes: S06.0X0A - Concussion without loss of consciousness, initial encounter Chest wall contusion Encounter type: initial encounter Laterality: left Qualified Codes: S20.212A - Contusion of left front wall of thorax, initial encounter GERALDO INMAN APRN Feb 07, 2020 23:10
== END 2020-02-07 23:02 | disposition home or self-care (01) ==
LOC: ER 20:36
DX: S06.0X0A Concussion without loss of consciousness, initial encounter (principal); S20.212A Contusion of left front wall of thorax, initial encounter; E11.9 Type 2 diabetes mellitus without complications; Z86.73 Personal history of transient ischemic attack (TIA), and cerebral infarction without residual deficits; Z87.891 Personal history of nicotine dependence; Z93.3 Colostomy status; Z90.5 Acquired absence of kidney; Y93.89 Activity, other specified; W10.8XXA Fall (on) (from) other stairs and steps, initial encounter; Y92.89 Other specified places as the place of occurrence of the external cause; Y99.8 Other external cause status
CPT/HCPCS: 70450; 71046; 82962; 99285-25; Q0162